=== PATIENT | female | born 1955 | race Caucasian/White ===

== ENCOUNTER 2016-11-27 13:42 | Inpatient (IN) | payer OTHER, BC ==
[~2016-11-27] VITALS: Ht 175.3 cm; Wt 97.7 kg
[~2016-11-27 13:42] MED LIST: CHILDREN'S ASPI81 M1 PO; COMBIGAN O20 DROP/5 BOTH EYES; COUMADIN1 MG PO; COZAAR50 MG PO; FUROSEMIDE40 MG PO; LANTUS 3 M100 UNITS1 SC; LOSARTAN POTASS25 MG PO; MELOXICAM15 MG PO; METOPROLOL SUC100 MG PO; METOPROLOL SUCC50 MG PO; NAPROXEN500 MG PO; PLAVIX75 MG PO; SANTYL30 GM TP; SIMVASTATIN40 MG PO; TYLENOL WITH C1 EACH PO; VALIUM5 MG PO
[2016-11-27 14:51] LABS: HEMATOCRIT 29.8 % (36.0-46.0); MCH 24.6 PG (29.0-34.0); MCHC 33.9 G/DL (30.0-36.0); MCV 72.5 FL (83-99); MEAN PLAT.VOLUME 8.8 uM^3 (9.5-12.4); PLATELET COUNT 202 K/uL (156-360); RBC DIS.WIDTH-CV 18.4 % (11.8-14.6); RBC DIS.WIDTH-SD 47.3 % (39-53); RED BLOOD COUNT 4.11 M/uL (3.80-5.20); WHITE BLOOD COUNT 12.7 K/uL (4.1-10.2)
[2016-11-27 14:53] LABS: EOSINOPHIL (%) 0 % (0-5); IMMATURE GRANULOCYTE (%) 0.6 % (0.0-0.7); IMMATURE GRANULOCYTE COUNT 0.8 K/uL; LYMPHOCYTE COUNT 1.3 K/uL (1.0-2.8); MONOCYTE (%) 8.4 % (3-12); MONOCYTE COUNT 1.1 K/uL (0-0.8); NEUTROPHIL (%) 80.3 % (45-76); NEUTROPHIL COUNT 10.2 K/uL (1.8-6.4)
[2016-11-27 15:00] LABS: CHLORIDE 96 mEq/L (99-109); POTASSIUM 4.2 mEq/L (3.7-5.4); SODIUM 130 mEq/L (136-147)
[2016-11-27 15:02] LABS: GLUCOSE 245 mg/dL (70-99)
[2016-11-27 15:04] LABS: ANION GAP 13 MEQ/L (2-14); TOTAL BILIRUBIN 0.9 mg/dL (0.0-1.0)
[2016-11-27 15:06] LABS: ALKALINE PHOSPHATASE 75 IU/L (3-129); GFR ESTIMATE (CALCULATED) 53 mL/min/
[2016-11-27 15:07] LABS: UREA NITROGEN (BUN) 20 mg/dL (9-23)
[2016-11-27 15:09] LABS: LIPASE 44 U/L (1.0-51.0)
[2016-11-27 15:15] LABS: TROP-I INTERPRETATION NEGATIVE; TROPONIN-I < 0.01 ng/mL (0.0-0.30)
[2016-11-27 16:14] LABS: ADD MIUA? YES; BILIRUBIN NEGATIVE; BLOOD LARGE; COLOR YELLOW ((YELLOW)); GLUCOSE (STRIP) >=500; KETONES NEGATIVE; LEUKOCYTES NEGATIVE; NITRITE NEGATIVE; PROTEIN (STRIP) 30
[2016-11-27 16:31] LABS: SPECIFIC GRAVITY 1.064 (1.000-1.030)
[2016-11-27 16:53] LABS: RED BLOOD CELLS RARE /HPF (0-5); WHITE BLOOD CELLS 0-5 /HPF (0-5)
[2016-11-27 16:57] LABS: BACTERIA 1+ /HPF; CASTS NONE SEEN /LPF; CRYSTALS NONE SEEN; EPITHELIAL CELLS RARE /HPF; MUCUS NONE SEEN /LPF
[2016-11-27] MEDS ORDERED: WARFARIN SODIUM1 MG PO (17:35)
[2016-11-27] MEDS ORDERED: COUMADIN6 MG PO (17:35)
[2016-11-27] MEDS ORDERED: CRESTOR20 MG PO (17:36)
[2016-11-27] MEDS ORDERED: COZAAR25 MG PO (17:37)
[2016-11-27] MEDS ORDERED: METOPROLOL SUC200 MG PO (17:37)
[2016-11-27] MEDS ORDERED: LASIX40 MG PO (17:38)
[2016-11-27] MEDS ORDERED: JARDIANCE10 MG PO (17:39)
[2016-11-27] MEDS ORDERED: LATANOPROST2.5 ML BOTH EYES (17:39)
[2016-11-27] MEDS ORDERED: VICTOZA 2-0.6 MG/0.1 SC (17:40)
[2016-11-27] MEDS ORDERED: OXYCODONE HCL10 MG PO (17:40)
[2016-11-27] MEDS ORDERED: VITAMIN D-3 401 EACH PO (17:41)
[2016-11-27] MEDS ORDERED: VITAMIN B-650 M1 PO (17:41)
[2016-11-27] MEDS ORDERED: FISH OIL300 MG PO (17:42)
[2016-11-27] MEDS ORDERED: CO Q-10100 MG PO (17:42)
[2016-11-27] MEDS ORDERED: NOVOLOG PE100 UNITS/ SC (17:43)
[2016-11-27 17:55] LABS: INTER. NORMALIZED RATIO 1.9; PROTHROMBIN TIME 19.4 (9.2-11.2)
[2016-11-27 18:47] VITALS: BP 123/65
[2016-11-27 19:03] LABS: C DIFF TOXIN NEGATIVE (NEGATIVE)
[2016-11-27 19:24] LABS: PROBE CHECK PASS; SPECIMEN PROCESSING CONTROL PASS
[2016-11-27 20:00] VITALS: BP 109/67
[2016-11-27 21:18] LABS: POINT-OF-CARE USER ID AHSUCEG
[2016-11-27 22:44] LABS: TROP-I INTERPRETATION NEGATIVE; TROPONIN-I 0.01 ng/mL (0.0-0.30)
[2016-11-27 23:29] VITALS: BP 127/60
[2016-11-28 03:48] VITALS: BP 144/68
[2016-11-28 06:25] LABS: PROTHROMBIN TIME 21.2 (9.2-11.2)
[2016-11-28 06:42] LABS: ANION GAP 7 MEQ/L (2-14); CHLORIDE 100 MEQ/L (99-109); GFR ESTIMATE (CALCULATED) > 59 mL/min/; POTASSIUM 3.9 MEQ/L (3.7-5.4); SAMPLE HEMOLYSIS CHECK 0; SAMPLE ICTERIC CHECK 0; SAMPLE LIPEMIA CHECK 0; SODIUM 134 MEQ/L (136-147); UREA NITROGEN (BUN) 16 mg/dL (9-23)
[2016-11-28 06:43] LABS: TROP-I INTERPRETATION NEGATIVE; TROPONIN-I 0.01 ng/mL (0.0-0.30)
[2016-11-28 06:45] LABS: GLUCOSE 103 mg/dL (70-99)
[2016-11-28 06:52] LABS: EOSINOPHIL (%) 0 % (0-5); HEMATOCRIT 26.3 % (36.0-46.0); IMMATURE GRANULOCYTE (%) 0.2 % (0.0-0.7); LYMPHOCYTE COUNT 1.2 K/uL (1.0-2.8); MCH 24.4 PG (29.0-34.0); MCHC 33.1 G/DL (30.0-36.0); MCV 73.9 FL (83-99); MEAN PLAT.VOLUME 8.9 uM^3 (9.5-12.4); MONOCYTE (%) 9.9 % (3-12); MONOCYTE COUNT 0.9 K/uL (0-0.8); NEUTROPHIL COUNT 6.5 K/uL (1.8-6.4); PLATELET COUNT 154 K/uL (156-360); RBC DIS.WIDTH-CV 18.2 % (11.8-14.6); RBC DIS.WIDTH-SD 49.4 % (39-53); RED BLOOD COUNT 3.56 M/uL (3.80-5.20); WHITE BLOOD COUNT 8.6 K/uL (4.1-10.2)
[2016-11-28 08:00] VITALS: BP 98/54
[2016-11-28 11:49] VITALS: BP 117/59
[2016-11-28 16:09] VITALS: BP 111/59
[2016-11-28 19:23] VITALS: BP 137/66
[2016-11-28 23:14] VITALS: BP 141/65
[2016-11-29 03:46] VITALS: BP 137/67
[2016-11-29 06:46] LABS: HEMATOCRIT 27.2 % (36.0-46.0); MCH 22.9 PG (29.0-34.0); MCHC 30.9 G/DL (30.0-36.0); MCV 74.1 FL (83-99); MEAN PLAT.VOLUME 8.5 uM^3 (9.5-12.4); PLATELET COUNT 161 K/uL (156-360); RBC DIS.WIDTH-SD 49.2 % (39-53); RED BLOOD COUNT 3.67 M/uL (3.80-5.20); WHITE BLOOD COUNT 6.4 K/uL (4.1-10.2)
[2016-11-29 07:05] LABS: INTER. NORMALIZED RATIO 1.9; PROTHROMBIN TIME 19.3 (9.2-11.2)
[2016-11-29 07:07] LABS: EOSINOPHIL (%) 0.5 % (0-5); IMMATURE GRANULOCYTE (%) 0.2 % (0.0-0.7); LYMPHOCYTE COUNT 1.5 K/uL (1.0-2.8); MONOCYTE (%) 9.6 % (3-12); MONOCYTE COUNT 0.6 K/uL (0-0.8); NEUTROPHIL (%) 66.7 % (45-76); NEUTROPHIL COUNT 4.3 K/uL (1.8-6.4)
[2016-11-29 07:09] LABS: ANION GAP 7 MEQ/L (2-14); CHLORIDE 100 MEQ/L (99-109); GFR ESTIMATE (CALCULATED) > 59 mL/min/; GLUCOSE 83 mg/dL (70-99); POTASSIUM 3.8 MEQ/L (3.7-5.4); SAMPLE HEMOLYSIS CHECK 0; SAMPLE ICTERIC CHECK 0; SAMPLE LIPEMIA CHECK 0; SODIUM 133 MEQ/L (136-147); UREA NITROGEN (BUN) 16 mg/dL (9-23)
[2016-11-29 08:05] VITALS: BP 132/63
[2016-11-29 08:32] LABS: HEMATOLOGY COMMENT 1 SMEAR COMPATIBLE; USER ID BLP
[2016-11-29 11:47] VITALS: BP 119/57
[2016-11-29 15:33] VITALS: BP 132/60
[2016-11-29 20:15] VITALS: BP 136/64
[2016-11-30 00:26] VITALS: BP 113/63
[2016-11-30 04:22] VITALS: BP 149/66
[2016-11-30 07:09] VITALS: BP 130/62
[2016-11-30 07:31] LABS: HEMATOCRIT 27.5 % (36.0-46.0); MCH 23.1 PG (29.0-34.0); MCHC 31.3 G/DL (30.0-36.0); MCV 73.9 FL (83-99); MEAN PLAT.VOLUME 8.4 uM^3 (9.5-12.4); PLATELET COUNT 187 K/uL (156-360); RBC DIS.WIDTH-SD 48.6 % (39-53); RED BLOOD COUNT 3.72 M/uL (3.80-5.20); WHITE BLOOD COUNT 5.5 K/uL (4.1-10.2)
[2016-11-30 07:41] LABS: EOSINOPHIL (%) 0.4 % (0-5); IMMATURE GRANULOCYTE (%) 0.4 % (0.0-0.7); LYMPHOCYTE COUNT 1.4 K/uL (1.0-2.8); MONOCYTE (%) 8.2 % (3-12); MONOCYTE COUNT 0.5 K/uL (0-0.8); NEUTROPHIL (%) 65.7 % (45-76); NEUTROPHIL COUNT 3.6 K/uL (1.8-6.4)
[2016-11-30 07:45] LABS: INTER. NORMALIZED RATIO 1.8; PROTHROMBIN TIME 18.5 (9.2-11.2)
[2016-11-30 07:55] LABS: ANION GAP 8 MEQ/L (2-14); CHLORIDE 103 MEQ/L (99-109); GFR ESTIMATE (CALCULATED) > 59 mL/min/; GLUCOSE 85 mg/dL (70-99); POTASSIUM 4.5 MEQ/L (3.7-5.4); SAMPLE HEMOLYSIS CHECK 0; SAMPLE ICTERIC CHECK 0; SAMPLE LIPEMIA CHECK 0; SODIUM 138 MEQ/L (136-147); UREA NITROGEN (BUN) 15 mg/dL (9-23)
[2016-11-30 12:09] VITALS: BP 120/59
[2016-11-30 16:44] VITALS: BP 142/66
[2016-11-30 19:55] VITALS: BP 142/65
[2016-12-01 07:09] LABS: POINT-OF-CARE METER ID UU14162508
[2016-12-01 07:12] LABS: MCH 22.9 PG (29.0-34.0); MCHC 31.1 G/DL (30.0-36.0); MCV 73.7 FL (83-99); MEAN PLAT.VOLUME 8.5 uM^3 (9.5-12.4); PLATELET COUNT 214 K/uL (156-360); RBC DIS.WIDTH-SD 48.6 % (39-53); WHITE BLOOD COUNT 5.7 K/uL (4.1-10.2)
[2016-12-01 07:27] LABS: INTER. NORMALIZED RATIO 1.8; PROTHROMBIN TIME 18.2 (9.2-11.2)
[2016-12-01 07:36] LABS: ALKALINE PHOSPHATASE 64 IU/L (3-129); ANION GAP 10 MEQ/L (2-14); CHLORIDE 100 MEQ/L (99-109); GFR ESTIMATE (CALCULATED) > 59 mL/min/; GLUCOSE 65 mg/dL (70-99); POTASSIUM 3.6 MEQ/L (3.7-5.4); SAMPLE HEMOLYSIS CHECK 0; SAMPLE ICTERIC CHECK 0; SAMPLE LIPEMIA CHECK 0; SODIUM 136 MEQ/L (136-147); TOTAL BILIRUBIN 0.3 MG/DL (0.0-1.0); UREA NITROGEN (BUN) 13 mg/dL (9-23)
[2016-12-01 08:08] VITALS: BP 129/69
[2016-12-01 11:19] VITALS: BP 125/67
[2016-12-01 11:34] LABS: POINT-OF-CARE METER ID UU14162508
[2016-12-01 16:30] VITALS: BP 132/65
[2016-12-01 16:52] LABS: POINT-OF-CARE METER ID UU14162508
[2016-12-01 19:58] VITALS: BP 118/60
[2016-12-02] VITALS (7 sets, daily range): BP systolic 118–145; BP diastolic 58–87
[2016-12-02 06:22] LABS: POINT-OF-CARE METER ID UU14162508
[2016-12-02 07:08] LABS: INTER. NORMALIZED RATIO 1.8; PROTHROMBIN TIME 19.1 (9.2-11.2)
[2016-12-02 13:51] LABS: POINT-OF-CARE METER ID UU14162508; POINT-OF-CARE USER ID STWLMB34
[2016-12-02 16:21] LABS: Estimated Average Glucose 123 mg/dL (70-123); HEMOGLOBIN A1c (GLYCOHEMOGLOB) 5.9 % HGB (Below 5.7)
[2016-12-02 16:47] LABS: POINT-OF-CARE METER ID UU14162508
[2016-12-02 21:23] LABS: POINT-OF-CARE METER ID UU14162508
[2016-12-03 03:35] VITALS: BP 135/67
[2016-12-03 04:24] LABS: HEMATOCRIT 26.6 % (36.0-46.0); MCH 24.1 PG (29.0-34.0); MCHC 32.7 G/DL (30.0-36.0); MCV 73.7 FL (83-99); MEAN PLAT.VOLUME 8.2 uM^3 (9.5-12.4); PLATELET COUNT 261 K/uL (156-360); RBC DIS.WIDTH-CV 18.2 % (11.8-14.6); RBC DIS.WIDTH-SD 47.2 % (39-53); RED BLOOD COUNT 3.61 M/uL (3.80-5.20); WHITE BLOOD COUNT 6.4 K/uL (4.1-10.2)
[2016-12-03 04:33] LABS: INTER. NORMALIZED RATIO 1.8; PROTHROMBIN TIME 18.7 (9.2-11.2)
[2016-12-03 04:35] LABS: CHLORIDE 102 mEq/L (99-109); SODIUM 135 mEq/L (136-147)
[2016-12-03 04:38] LABS: ANION GAP 9 MEQ/L (2-14)
[2016-12-03 04:41] LABS: GFR ESTIMATE (CALCULATED) > 59 mL/min/
[2016-12-03 04:42] LABS: UREA NITROGEN (BUN) 13 mg/dL (9-23)
[2016-12-03 04:43] LABS: GLUCOSE 135 mg/dL (70-99); POTASSIUM 4.4 mEq/L (3.7-5.4)
[2016-12-03 06:50] LABS: POINT-OF-CARE METER ID UU14162508
[2016-12-03 08:07] VITALS: BP 122/66
[2016-12-03 11:47] LABS: POINT-OF-CARE METER ID UU14162508
[2016-12-03 11:54] VITALS: BP 121/63
[2016-12-03 15:28] VITALS: BP 131/70
[2016-12-03 19:50] VITALS: BP 123/62
[2016-12-03 21:55] LABS: POINT-OF-CARE METER ID UU14162508
[2016-12-03 23:43] VITALS: BP 133/70
[2016-12-04] VITALS (9 sets, daily range): BP systolic 118–147; BP diastolic 61–79
[2016-12-04 06:48] LABS: INTER. NORMALIZED RATIO 1.4; PROTHROMBIN TIME 14.2 (9.2-11.2)
[2016-12-04 11:27] LABS: POINT-OF-CARE METER ID UU14162508
[2016-12-04 22:10] LABS: GFR ESTIMATE (CALCULATED) > 59 mL/min/
[2016-12-05] VITALS (10 sets, daily range): BP systolic 137–149; BP diastolic 65–75
[2016-12-05 06:54] LABS: INTER. NORMALIZED RATIO 1.3; PROTHROMBIN TIME 13.4 (9.2-11.2)
[2016-12-05 07:11] LABS: ALKALINE PHOSPHATASE 66 IU/L (3-129); ANION GAP 11 MEQ/L (2-14); CHLORIDE 101 MEQ/L (99-109); GFR ESTIMATE (CALCULATED) > 59 mL/min/; GLUCOSE 114 mg/dL (70-99); POTASSIUM 4.1 MEQ/L (3.7-5.4); SAMPLE HEMOLYSIS CHECK 0; SAMPLE ICTERIC CHECK 0; SAMPLE LIPEMIA CHECK 0; SODIUM 139 MEQ/L (136-147); UREA NITROGEN (BUN) 14 mg/dL (9-23)
[2016-12-05 07:12] LABS: HEMATOCRIT 34.2 % (36.0-46.0); MCH 23.9 PG (29.0-34.0); MCHC 31.3 G/DL (30.0-36.0); MCV 76.3 FL (83-99); MEAN PLAT.VOLUME 8.4 uM^3 (9.5-12.4); PLATELET COUNT 222 K/uL (156-360); RBC DIS.WIDTH-CV 18.1 % (11.8-14.6); RBC DIS.WIDTH-SD 50.6 % (39-53); RED BLOOD COUNT 4.48 M/uL (3.80-5.20); TOTAL BILIRUBIN 0.7 MG/DL (0.0-1.0); WHITE BLOOD COUNT 5.7 K/uL (4.1-10.2)
[2016-12-05 21:30] LABS: POINT-OF-CARE USER ID AHSUCEG
[2016-12-06 03:55] VITALS: BP 147/75
[2016-12-06 06:50] LABS: POINT-OF-CARE METER ID UU14162508
[2016-12-06 07:11] LABS: HEMATOCRIT 32.1 % (36.0-46.0); MCH 25.7 PG (29.0-34.0); MCHC 33.3 G/DL (30.0-36.0); MCV 77.2 FL (83-99); MEAN PLAT.VOLUME 8.6 uM^3 (9.5-12.4); PLATELET COUNT 191 K/uL (156-360); RBC DIS.WIDTH-CV 18.2 % (11.8-14.6); RBC DIS.WIDTH-SD 51.2 % (39-53); RED BLOOD COUNT 4.16 M/uL (3.80-5.20); WHITE BLOOD COUNT 5.8 K/uL (4.1-10.2)
[2016-12-06 07:34] LABS: INTER. NORMALIZED RATIO 1.4
[2016-12-06 07:46] LABS: ALKALINE PHOSPHATASE 61 IU/L (3-129); ANION GAP 9 MEQ/L (2-14); CHLORIDE 104 MEQ/L (99-109); GFR ESTIMATE (CALCULATED) > 59 mL/min/; GLUCOSE 104 mg/dL (70-99); POTASSIUM 3.9 MEQ/L (3.7-5.4); SAMPLE HEMOLYSIS CHECK 0; SAMPLE ICTERIC CHECK 0; SAMPLE LIPEMIA CHECK 0; SODIUM 139 MEQ/L (136-147); UREA NITROGEN (BUN) 12 mg/dL (9-23)
[2016-12-06 08:04] LABS: TOTAL BILIRUBIN 0.4 MG/DL (0.0-1.0)
[2016-12-06 08:07] VITALS: BP 152/74
[2016-12-06 11:59] LABS: POC NON-PRINT COM 1 ND
[2016-12-06 12:00] LABS: POC NON-PRINT COM 1 ND
[2016-12-06 12:07] VITALS: BP 133/78
[2016-12-06 12:11] LABS: POINT-OF-CARE METER ID UU14162508
[2016-12-06 16:04] LABS: POINT-OF-CARE METER ID UU14162508
[2016-12-06 16:10] VITALS: BP 142/69
[2016-12-06 21:26] LABS: POINT-OF-CARE METER ID UU14162508
[2016-12-07] VITALS (7 sets, daily range): BP systolic 126–152; BP diastolic 67–85
[2016-12-07 07:07] LABS: HEMATOCRIT 33.7 % (36.0-46.0); MCH 23.7 PG (29.0-34.0); MCHC 30.9 G/DL (30.0-36.0); MCV 76.9 FL (83-99); RBC DIS.WIDTH-CV 18.3 % (11.8-14.6); RBC DIS.WIDTH-SD 51.2 % (39-53); RED BLOOD COUNT 4.38 M/uL (3.80-5.20); WHITE BLOOD COUNT 5.6 K/uL (4.1-10.2)
[2016-12-07 07:12] LABS: POINT-OF-CARE METER ID UU14162508
[2016-12-07 07:19] LABS: INTER. NORMALIZED RATIO 1.4
[2016-12-07 08:03] LABS: PLATELET COUNT UNABLE TO REPORT K/uL (156-360)
[2016-12-07 08:23] LABS: ALKALINE PHOSPHATASE 66 IU/L (3-129); ANION GAP 9 MEQ/L (2-14); CHLORIDE 106 MEQ/L (99-109); FERRITIN 303 NG/ML (10-291); GFR ESTIMATE (CALCULATED) > 59 mL/min/; GLUCOSE 99 mg/dL (70-99); IRON 31 MCG/DL (35-150); POTASSIUM 3.7 MEQ/L (3.7-5.4); SAMPLE HEMOLYSIS CHECK 0; SAMPLE ICTERIC CHECK 0; SAMPLE LIPEMIA CHECK 0; SODIUM 141 MEQ/L (136-147); UREA NITROGEN (BUN) 15 mg/dL (9-23)
[2016-12-07 08:36] LABS: TOTAL BILIRUBIN 0.5 MG/DL (0.0-1.0)
[2016-12-07 12:05] LABS: POINT-OF-CARE METER ID UU13113819
[2016-12-08 03:55] VITALS: BP 1472/74
[2016-12-08 07:02] LABS: HEMATOCRIT 35.5 % (36.0-46.0); MCH 23.7 PG (29.0-34.0); MCHC 30.7 G/DL (30.0-36.0); MCV 77.3 FL (83-99); RBC DIS.WIDTH-CV 18.4 % (11.8-14.6); RBC DIS.WIDTH-SD 51.9 % (39-53); RED BLOOD COUNT 4.59 M/uL (3.80-5.20); WHITE BLOOD COUNT 4.8 K/uL (4.1-10.2)
[2016-12-08 07:21] LABS: INTER. NORMALIZED RATIO 1.3; PROTHROMBIN TIME 13.8 (9.2-11.2)
[2016-12-08 07:25] LABS: ALKALINE PHOSPHATASE 68 IU/L (3-129); ANION GAP 8 MEQ/L (2-14); CHLORIDE 105 MEQ/L (99-109); GFR ESTIMATE (CALCULATED) > 59 mL/min/; GLUCOSE 116 mg/dL (70-99); POTASSIUM 3.7 MEQ/L (3.7-5.4); SAMPLE HEMOLYSIS CHECK 0; SAMPLE ICTERIC CHECK 0; SAMPLE LIPEMIA CHECK 0; SODIUM 141 MEQ/L (136-147); TOTAL BILIRUBIN 0.5 MG/DL (0.0-1.0); UREA NITROGEN (BUN) 12 mg/dL (9-23)
[2016-12-08 07:52] VITALS: BP 166/77
[2016-12-08 07:53] LABS: MEAN PLAT.VOLUME 8.2 uM^3 (9.5-12.4)
[2016-12-08 08:02] LABS: PLATELET COUNT 156 K/uL (156-360)
[2016-12-08 11:54] VITALS: BP 119/63
[2016-12-08 16:02] VITALS: BP 140/71
[2016-12-08 19:14] VITALS: BP 131/61
[2016-12-08 23:58] VITALS: BP 143/69
[2016-12-09 03:52] VITALS: BP 152/74
[2016-12-09 06:45] LABS: INTER. NORMALIZED RATIO 1.4; PROTHROMBIN TIME 14.1 (9.2-11.2)
[2016-12-09 08:10] VITALS: BP 143/70
[2016-12-09 11:11] VITALS: BP 134/63
[2016-12-09 16:07] VITALS: BP 144/72
[2016-12-09 16:23] LABS: POINT-OF-CARE METER ID UU14162508
[2016-12-09 20:03] VITALS: BP 156/75
[2016-12-09 21:33] LABS: POINT-OF-CARE METER ID UU14162508
[2016-12-09 23:45] VITALS: BP 138/70
[2016-12-10 00:20] VITALS: BP 140/77
== END 2016-12-10 00:30 | disposition short-term general hospital (02) | DRG 289 ==
LOC: EME 13:42 → EDOF 16:14 → 2EAST 16:14
PROVIDERS: Family Medicine; Internal Medicine; Physician Assistant
DX: I33.0 Acute and subacute infective endocarditis (principal); I25.5 Ischemic cardiomyopathy; E11.9 Type 2 diabetes mellitus without complications; I42.0 Dilated cardiomyopathy; I25.2 Old myocardial infarction; I25.10 Atherosclerotic heart disease of native coronary artery without angina pectoris; I10 Essential (primary) hypertension; K40.90 Unilateral inguinal hernia, without obstruction or gangrene, not specified as recurrent; F32.9 Major depressive disorder, single episode, unspecified; I48.0 Paroxysmal atrial fibrillation; R10.12 Left upper quadrant pain; R16.1 Splenomegaly, not elsewhere classified; G89.29 Other chronic pain; R50.9 Fever, unspecified; M54.9 Dorsalgia, unspecified; R09.02 Hypoxemia; R07.89 Other chest pain; E86.0 Dehydration; B95.2 Enterococcus as the cause of diseases classified elsewhere; R11.2 Nausea with vomiting, unspecified; R19.7 Diarrhea, unspecified; Z79.4 Long term (current) use of insulin; Z95.1 Presence of aortocoronary bypass graft; Z86.74 Personal history of sudden cardiac arrest; Z88.1 Allergy status to other antibiotic agents; Z87.891 Personal history of nicotine dependence; Z95.810 Presence of automatic (implantable) cardiac defibrillator
CPT/HCPCS: 36415; 71010; 71020; 71275; 72129; 72132; 74177; 80048; 80053; 80170; 80200; 80202; 81003; 82272; 82565; 82607; 82728; 82746; 82948; 83036; 83540; 83605; 83690; 84439; 84443; 84466; 84484; 84520; 85025; 85027; 85610; 86850; 86900; 86901; 86920; 87040; 87077; 87186; 87493; 87506; 87801; 93005; 93306; 93312; 94640; 94640 76; 97530 GO; 97530 GP; 99202; 99281; 99285; J0290; J0456; J0696; J1580; J1650; J1815; J1940; J2405; J3010; J3370; J7030; J7050; P9016